=== PATIENT | male | born 1975 | race Caucasian/White ===

== ENCOUNTER → 2018-01-12 | Outpatient (CLI) | payer OTHER | LOC: COL.RAD 07:00 | DX: R31.0 Gross hematuria (principal); R93.41 Abnormal radiologic findings on diagnostic imaging of renal pelvis, ureter, or bladder; I70.90 Unspecified atherosclerosis | CPT/HCPCS: Q9967 ==

== ENCOUNTER 2018-01-20 11:54 | Day surgery (SDC) | payer OTHER ==
[2018-01-20] VITALS (10 sets, daily range): BP systolic 117–140; BP diastolic 47–94; PULSE 68–87; TEMP 97.7–98.9
[~2018-01-20] VITALS: Ht 177.8 cm; Wt 89.2 kg
[2018-01-20] MEDS ORDERED: XANAX 1MG1 MG PO (12:51)
[2018-01-20] MEDS ORDERED: PRINIVIL20 MG PO (12:51)
[2018-01-20] MEDS ORDERED: TOPROL XL 25MG25 MG PO (12:52)
[2018-01-21 00:05] VITALS: BP 125/69; PULSE 81; TEMP 99.2
[2018-01-21 03:39] VITALS: BP 114/63; PULSE 70; TEMP 98.1
[2018-01-21 08:20] VITALS: BP 129/87; PULSE 89; TEMP 97.5
[2018-01-21 11:51] VITALS: BP 107/59; PULSE 81; TEMP 98
== END 2018-01-21 15:45 | disposition home or self-care (01) ==
LOC: SDCO 11:54 → MEDICAL 16:27 → SDCO 01-21 15:45
DX: C67.4 Malignant neoplasm of posterior wall of bladder (principal); C61 Malignant neoplasm of prostate; F17.210 Nicotine dependence, cigarettes, uncomplicated; Z79.899 Other long term (current) drug therapy; Z80.9 Family history of malignant neoplasm, unspecified
CPT/HCPCS: OP; J0360; J0690; J1100; J1885; J2175; J2405; J2704; J3010; J3480; J7120; J9280

== ENCOUNTER 2018-02-15 12:04 | Day surgery (SDC) | payer OTHER ==
[2018-02-15] VITALS (9 sets, daily range): BP systolic 104–145; BP diastolic 42–91; PULSE 53–83; TEMP 97.5–97.6
[~2018-02-15] VITALS: Ht 177.8 cm; Wt 89.5 kg
[~2018-02-15 12:04] MED LIST: PRINIVIL20 MG PO; TOPROL XL 25MG25 MG PO; XANAX 1MG1 MG PO
[2018-02-15] MEDS ORDERED: WELLBUTRIN XL150 MG PO (12:33)
[2018-02-16 01:02] VITALS: BP 140/61; PULSE 69; TEMP 98.3
[2018-02-16 04:24] VITALS: BP 115/63; PULSE 66; TEMP 98.2
[2018-02-16 08:34] VITALS: BP 118/73; PULSE 70; TEMP 97.5
[2018-02-16 11:29] VITALS: BP 118/73; PULSE 76; TEMP 97.4
== END 2018-02-16 13:34 | disposition home or self-care (01) ==
LOC: SDCO 12:04 → SURG 16:00 → SDCO 02-16 13:34
DX: C67.2 Malignant neoplasm of lateral wall of bladder (principal); K22.10 Ulcer of esophagus without bleeding; K21.0 Gastro-esophageal reflux disease with esophagitis; I10 Essential (primary) hypertension; F17.210 Nicotine dependence, cigarettes, uncomplicated; Z80.9 Family history of malignant neoplasm, unspecified; F41.9 Anxiety disorder, unspecified; Z79.899 Other long term (current) drug therapy
CPT/HCPCS: OP; J0690; J2250; J2405; J2704; J3010; J3480

== ENCOUNTER 2018-04-22 03:16 | Observation (INO) | payer OTHER ==
[~2018-04-22] VITALS: Ht 177.8 cm; Wt 93.1 kg
[~2018-04-22 03:16] MED LIST changes: +WELLBUTRIN XL150 MG PO
[2018-04-22 03:40] LABS: BASO # 0.1 (0.0-0.2); BASO % 0.7 % (0.0-2.0); EOS # 0.2 (0.0-0.7); EOS % 1.7 % (0-4.0); GRAN # 7.7 (1.4-6.5); GRAN % 70.3 % (42.2-75.2); HEMATOCRIT 43.3 % (42.0-52.0); HEMOGLOBIN 14.3 g/dl (13.5-18.0); LYMPH % 18.1 % (20.0-51.0); MEAN CELL VOLUME 92 fl (80.0-100.0); MEAN CORPUSCULAR HEMOGLOBIN 30 pg (27.0-31.0); MEAN CORPUSCULAR HGB CONC 33 g/dl (33.0-37.0); MEAN PLATELET VOLUME 9.2 fl (7.4-10.4); MONO % 8.7 % (1.7-9.3); PLATELET COUNT 372 K/mm3 (130-400); RED BLOOD COUNT 4.71 M/mm3 (4.20-5.60); REDCELL DISTRIBUTION WIDTH-CV 12.8 % (11.5-14.5)
[2018-04-22 03:50] LABS: ALANINE AMINOTRANSFERASE 34 U/L (21-72); ALKALINE PHOSPHATASE 92 U/L (50-136); ANION GAP 9 mmol/L (7-16); AST,SGOT 23 U/L (15-37); BILIRUBIN,TOTAL 0.2 mg/dL (0.0-1.0); BLOOD UREA NITROGEN 14 mg/dL (9-20); CALCIUM 8.8 mg/dL (8.4-10.2); CARBON DIOXIDE 27 mmol/L (22-30); CHLORIDE 104 mmol/L (98-107); CREATININE, serum 0.98 mg/dL (0.66-1.25); GLUCOSE 110 mg/dL (74-106); LIPASE 231 U/L (23-300); POTASSIUM 3.8 mmol/L (3.4-5.0); SODIUM 140 mmol/L (137-145)
[2018-04-22 04:03] LABS: TROPONIN-I < 0.012 ng/mL (0.000-0.034)
[2018-04-22] MEDS ORDERED: WELLBUTRIN XL300 M1 PO (05:17)
[2018-04-22 07:54] VITALS: BP 123/85; PULSE 69; TEMP 97.4
[2018-04-22 08:00] VITALS: BP 118/81; PULSE 65; TEMP 97.8
[2018-04-22 08:48] LABS: CHOLESTEROL RISK RATIO 5.2
[2018-04-22 08:49] LABS: INR 0.9 (0.8-3.0)
[2018-04-22 08:52] LABS: PARTIAL THROMBOPLASTIN TIME 31.6 SECONDS (26.0-37.0)
[2018-04-22 12:00] VITALS: BP 107/73; PULSE 63
[2018-04-22] MEDS ORDERED: ASPIRIN E.C. 8181 MG PO (15:08)
[2018-04-22] MEDS ORDERED: MOTRIN 400400 MG/TAB PO (15:14)
== END 2018-04-22 16:00 | disposition home or self-care (01) ==
LOC: COL.ER 03:16 → ICU 06:18
PROVIDERS: Emergency Medicine; Nurse Practitioner Family
DX: R07.89 Other chest pain (principal); I10 Essential (primary) hypertension; E78.5 Hyperlipidemia, unspecified; F17.210 Nicotine dependence, cigarettes, uncomplicated; F41.9 Anxiety disorder, unspecified; D72.829 Elevated white blood cell count, unspecified; Z82.49 Family history of ischemic heart disease and other diseases of the circulatory system
CPT/HCPCS: G0378; J1650; J1885; J2270; J7030

== ENCOUNTER 2018-12-28 07:35 | Outpatient (CLI) | payer OTHER ==
[2018-12-28] VITALS (9 sets, daily range): BP systolic 119–145; BP diastolic 83–103; PULSE 61–75; TEMP 97.6
[~2018-12-28] VITALS: Ht 177.8 cm; Wt 89.9 kg
[~2018-12-28 07:35] MED LIST changes: +ASPIRIN E.C. 8181 MG PO; +MOTRIN 400400 MG/TAB PO; +WELLBUTRIN XL300 M1 PO
--- NOTE | 2018-12-28 09:55 | NUR ---
Pt to [facility] 9 per cart s/p LP. Pt resting well, at bedside.
[2018-12-28 11:18] LABS: GLUCOSE,CSF 66 mg/dL (40-70); TOTAL PROTEIN,CSF 46 mg/dL (15-45)
--- NOTE | 2018-12-28 11:55 | NUR ---
Pt has ambulated and sylvie PO intake s n/v.
--- NOTE | 2018-12-28 12:00 | NUR ---
Pt discharged per w/c by nurse with .
[2018-12-28 12:06] LABS: CSF APPEARANCE CLEAR; CSF COLOR COLORLESS; CSF POLYMORPHONUCLEAR 0 % (0-6); CSF RBC 1 /mm3 (0-0)
[2018-12-28 12:07] LABS: CSF MONONUCLEAR 100 % (70-100)
[2019-01-01 15:12] LABS: CSF OLIG BD INTERPRETATION 0 bands (<4); CSF OLIGOCLONAL BANDING 0 bands (()); SE OLIGOCLONAL BANDING 0 bands (())
== END 2018-12-28 12:01 | disposition home or self-care (01) ==
LOC: COL.RAD 07:35
PROVIDERS: Psychiatry & Neurology Neurology
DX: H53.2 Diplopia (principal); G93.2 Benign intracranial hypertension

== ENCOUNTER → 2020-01-14 | Outpatient (CLI) | payer OTHER | LOC: COL.LAB 14:35 | DX: Z20.828 Contact with and (suspected) exposure to other viral communicable diseases (principal) ==